=== PATIENT | female | born 1955 | race Caucasian/White ===

== ENCOUNTER → 2017-10-23 | Day surgery (SDC) | payer MEDICARE, BC ==
[~2017-10-23] MED LIST: Lactated Ringers 1,000 ML IV SCH; Midazolam 1 MG/ML 2 ML SDV ONE; Propofol 200 MG/20 ML SDV ONE; Sodium Chloride 0.9% 10 ML Syringe FLUSH PRN; fentaNYL 100 MCG/2 ML SDV ONE
--- NOTE | 2017-10-23 14:18 | PCM.PN ---
- General Info Date of Service: 10/23/17 - Review of Systems Systems Review Comment:: 62-year-old female with a history of breast cancer here for colonoscopy. Her last colonoscopy was 5 years ago. She denies any change in bowel habits or recent rectal bleeding. Her last history and physical is reviewed and no significant changes are noted. I have discussed the proposed colonoscopy with the patient.She agrees to proceed accepting risks. - Patient Data Vitals - Most Recent: Last Vital Signs Temp Pulse 72 10/23/17 12:54 Resp 20 10/23/17 12:54 BP 145/79 H 10/23/17 12:54 Pulse Ox 98 10/23/17 12:54 Weight - Most Recent: 80.739 kg Med Orders - Current: Current Medications Lactated Ringer's (Ringers, Lactated) 1,000 mls @ 125 mls/hr IV ASDIRECTED COLTON Last Admin: 10/23/17 13:09 Dose: 125 mls/hr Sodium Chloride (Saline Flush) 10 ml FLUSH ASDIRECTED PRN PRN Reason: Keep Vein Open Discontinued Medications Fentanyl (Sublimaze) Confirm Administered Dose 100 mcg .ROUTE .STK-MED ONE Stop: 10/23/17 13:24 Midazolam HCl (Versed 1 Mg/Ml) Confirm Administered Dose 2 mg .ROUTE .STK-MED ONE Stop: 10/23/17 13:25 Propofol (Diprivan 20 Ml) Confirm Administered Dose 200 mg .ROUTE .STK-MED ONE Stop: 10/23/17 13:25 - Problem List Review Problem List Initiated/Reviewed/Updated: Yes - My Orders Last 24 Hours: My Active Orders 10/23/17 10:45 Patient Status [ADT] Routine Peripheral IV Care [RC] . DIRECTED Verify Patient Consent Obtain [RC] ASDIRECTED Lactated Ringers [Ringers, Lactated] 1,000 ml IV ASDIRECTED Sodium Chloride 0.9% [Saline Flush] 10 ml FLUSH ASDIRECTED PRN Peripheral IV Insertion Adult [OM.PC] Routine - Assessment Assessment:: History of breast cancer - Plan Plan:: Colonoscopy
--- NOTE | 2017-10-23 14:45 | PCM.OPNOTE ---
- General Post-Op/Procedure Note Date of Surgery/Procedure: 10/23/17 Operative Procedure(s): Colonoscopy with Polyp Removal Findings: Small Cecal Polyp Moderate Sigmoid Diverticulosis Pre Op Diagnosis: History of Breast Cancer Post-Op Diagnosis: Sigmoid Diverticulosis. Cecal Polyp Anesthesia Technique: MAC Primary Surgeon: Steve Warren Pathology: Cecal Polyp Output, Urine Amount: 0 EBL in mLs: 2 Complications: None Condition: Good Free Text/Narrative:: Intake & Output 10/22/17 10/23/17 10/23/17 22:59 06:59 14:59 Intake Total 900 Balance 900
--- NOTE | 2017-10-24 10:13 | OR ---
Date of Procedure: 10/23/2017 Referring Provider: Tasneem Arthur PA-C PREOPERATIVE DIAGNOSIS: High risk cancer screening with personal history of breast cancer. POSTOPERATIVE DIAGNOSES: 1. Cecal polyp. 2. Sigmoid diverticulosis. OPERATIONS PERFORMED: Colonoscopy with polyp removal. INDICATIONS FOR SURGERY: This is a 62-year-old female with a known history of breast cancer, presents today for colonoscopy. Her last colon exam was 5 years ago. She denies any recent symptoms. FINDINGS: A single small polyp was noted in the cecum. This was 4 mm in size and sessile in configuration. The patient also has a moderate degree of sigmoid diverticulosis, which does not appear acutely inflamed or otherwise complicated. PROCEDURE IN DETAIL: The patient was taken to the operating room. She was given intravenous sedation and with her in the left lateral decubitus position, digital rectal exam was performed showing no rectal masses. The Olympus colonoscope was inserted into the rectum. Retroflexed examination of the rectal canal was performed. The scope was then carefully advanced under direct visualization through the entire length of the colon until the cecum was reached. Cecal acquisition was confirmed by noting normal internal cecal anatomy including the appendiceal orifice and ileocecal valve and also noting the light to transilluminate the abdominal wall in the right lower quadrant. While examining the cecum, a small above-described polyp was identified. This was removed grossly in its entirety with bites of the cold biopsy forceps. After this polyp had been completely removed and with no sign of any complication, the scope was slowly withdrawn sequentially re-examining the colonic segments until the entire colon and rectum had been fully examined. The scope was removed and the patient was taken from the operating room in satisfactory condition. ESTIMATED BLOOD LOSS: 2 mL. COMPLICATIONS: None. PROGNOSIS: Good. CHRIST Warren MD /[id number] [place]
== END | disposition home or self-care (01) ==
LOC: LL.SDS 12:46
PROVIDERS: ATTEND Surgery
DX: Z12.11 Encounter for screening for malignant neoplasm of colon (principal); D12.0 Benign neoplasm of cecum; K57.30 Diverticulosis of large intestine without perforation or abscess without bleeding; I10 Essential (primary) hypertension; E66.3 Overweight; Z68.34 Body mass index [BMI] 34.0-34.9, adult; E03.9 Hypothyroidism, unspecified; Z85.3 Personal history of malignant neoplasm of breast; Z79.899 Other long term (current) drug therapy; Z90.13 Acquired absence of bilateral breasts and nipples
CPT/HCPCS: 45380; J2250; J2704; J3010; J7120; 00812

== ENCOUNTER → 2018-12-29 | Outpatient (CLI) | payer MEDICARE, BC | LOC: LL.DI 14:32 | PROVIDERS: ATTEND Physician Assistant | DX: R07.9 Chest pain, unspecified (principal); Z85.3 Personal history of malignant neoplasm of breast | CPT/HCPCS: 71046 ==